=== PATIENT | male | born 1970 | race Two or more races ===

== ENCOUNTER 2021-07-14 22:52 | Emergency (ER) | payer MEDICAID, OTHER ==
[~2021-07-14] VITALS: Ht 170.2 cm; Wt 86.2 kg
[2021-07-15 01:45] LABS: Basophils # (auto) 0.1 10 ^3/uL (0-0.2); Basophils % (auto) 0.9 % (0.0-2.0); Eosinophils # (auto) 0.3 10 ^3/uL (0-0.8); Eosinophils % (auto) 3.5 % (0.0-7.0); Hematocrit 50.7 % (41.0-53.0); Hemoglobin 17.4 g/dL (13.5-17.5); Lymphocytes # (auto) 2.2 10 ^3/uL (0.4-5.4); Lymphocytes % (auto) 29.8 % (10.0-50.0); Mean Corpuscular Hemoglobin 31.9 pg (28.0-32.0); Mean Corpuscular Hgb Conc. 34.2 g/dL (32.0-36.0); Mean Corpuscular Volume 93.1 fL (80.0-100.0); Monocytes # (auto) 0.7 10 ^3/uL (0-1.3); Monocytes % (auto) 9.4 % (0.0-12.0); Neutrophils # (auto) 4.1 10 ^3/uL (1.6-8.6); Neutrophils % (auto) 56.4 % (37.0-80.0); Nucleated Red Blood Cells % 0.2 %; Red Blood Cells 5.45 10^6/uL (4.5-5.90); Red Cell Distribution Width 13.5 % (11.8-14.3); White Blood Cell 7.3 10^3/uL (4.4-10.8)
[2021-07-15 01:57] LABS: Albumin 4.1 g/dL (3.4-5.0); Calcium 9.2 mg/dL (8.5-10.1); Potassium 4.2 mmol/L (3.5-5.1)
[2021-07-15 01:59] LABS: BUN/Creatinine Ratio 14.8
[2021-07-15 02:02] LABS: Bilirubin, Total 0.4 mg/dL (0.2-1.0)
[2021-07-15 11:30] VITALS: BP 129/87
== END 2021-07-15 11:55 | disposition home or self-care (01) ==
LOC: ER 22:52
DX: I10 Essential (primary) hypertension (principal); R51.9 Headache, unspecified
CPT/HCPCS: 36415; 70450; 71045; 80053; 83880; 84484; 85025; 93005